=== PATIENT | female | born 1990 | race Caucasian/White ===

== ENCOUNTER 2017-03-22 13:21 | Inpatient (IN) | payer OTHER ==
[~2017-03-22] VITALS: Ht 160 cm; Wt 92.5 kg
[~2017-03-22 13:21] MED LIST: NAPROXEN250 MG PO
[2017-03-22 15:07] LABS: HEMOGLOBIN 12.4 gm/dl (12.3-15.3); RED BLOOD COUNT 4.34 M/UL (4.00-5.10); WHITE BLOOD COUNT 12.8 K/UL (4.5-11.0)
[2017-03-24 03:51] LABS: HEMOGLOBIN 10.6 gm/dl (12.3-15.3)
[2017-03-25] MEDS ORDERED: COLACE 100MG C100 MG PO (14:25)
== END 2017-03-25 15:19 | disposition home or self-care (01) | DRG 766 ==
LOC: GENOP 13:21 → OB 13:32
PROVIDERS: Obstetrics & Gynecology; ADMIT Obstetrics & Gynecology
PROC: 3E0R3CZ (ICD-10-PCS; 2017-03-23)
PROC: 10D00Z1 Extraction of Products of Conception, Low, Open Approach (ICD-10-PCS; principal; 2017-03-23 07:58)
PROC: 3E0234Z Introduction of Serum, Toxoid and Vaccine into Muscle, Percutaneous Approach (ICD-10-PCS; 2017-03-25)
DX: O67.9 Intrapartum hemorrhage, unspecified (principal); O34.211 Maternal care for low transverse scar from previous cesarean delivery; N85.8 Other specified noninflammatory disorders of uterus; Z3A.38 38 weeks gestation of pregnancy; Z37.0 Single live birth; O24.424 Gestational diabetes mellitus in childbirth, insulin controlled; O26.893 Other specified pregnancy related conditions, third trimester; Z67.11 Type A blood, Rh negative; O99.824 Streptococcus B carrier state complicating childbirth; O36.8130 Decreased fetal movements, third trimester, not applicable or unspecified; O99.283 Endocrine, nutritional and metabolic diseases complicating pregnancy, third trimester; E28.2 Polycystic ovarian syndrome; O99.214 Obesity complicating childbirth; E66.9 Obesity, unspecified; Z68.36 Body mass index [BMI] 36.0-36.9, adult; O99.62 Diseases of the digestive system complicating childbirth; K66.0 Peritoneal adhesions (postprocedural) (postinfection); O99.89 Other specified diseases and conditions complicating pregnancy, childbirth and the puerperium; M54.9 Dorsalgia, unspecified; O99.343 Other mental disorders complicating pregnancy, third trimester; F32.9 Major depressive disorder, single episode, unspecified; O99.353 Diseases of the nervous system complicating pregnancy, third trimester; G43.909 Migraine, unspecified, not intractable, without status migrainosus; Z23 Encounter for immunization; Z86.14 Personal history of Methicillin resistant Staphylococcus aureus infection; Z79.4 Long term (current) use of insulin; Z79.84 Long term (current) use of oral hypoglycemic drugs; Z83.3 Family history of diabetes mellitus; Z82.49 Family history of ischemic heart disease and other diseases of the circulatory system; Z83.2 Family history of diseases of the blood and blood-forming organs and certain disorders involving the immune mechanism; Z80.9 Family history of malignant neoplasm, unspecified
CPT/HCPCS: 36415; 81001; 82800; 82962; 85014; 85018; 85025; 85461; 86900; 86901; 90707; C9113; J0690; J1815; J2274; J2300; J2370; J2405; J2590; J2765; J3010; J3430; J7120; Q0177

== ENCOUNTER 2020-07-09 04:05 | Emergency (ER) | payer MEDICARE ==
[~2020-07-09 04:05] MED LIST changes: +COLACE 100MG C100 MG PO; +IBUPROFEN800 MG PO
[2020-07-09 05:08] LABS: HEMOGLOBIN 13.3 gm/dl (12.3-15.3); RED BLOOD COUNT 4.64 M/UL (4.00-5.10); WHITE BLOOD COUNT 9.7 K/UL (4.5-11.0)
[2020-07-09 05:37] LABS: BUN/CREATININE RATIO 26 (0-10)
[2020-07-09] MEDS ORDERED: ANTIVERT 12.512.5 MG PO (07:06)
== END 2020-07-09 07:57 | disposition home or self-care (01) ==
LOC: ER1 04:05
PROVIDERS: Family Medicine
DX: R42 Dizziness and giddiness (principal); R51.9 Headache, unspecified; R41.840 Attention and concentration deficit; Z20.822 Contact with and (suspected) exposure to COVID-19
CPT/HCPCS: 70450; 80053; 80307; 82550; 82553; 83735; 83874; 84439; 84443; 84484; 84703; 85025; 93005; 99284; U0002